=== PATIENT | female | born 1985 | race Two or more races ===

== ENCOUNTER 2022-02-10 05:50 | Day surgery (SDC) | payer OTHER | END 2022-02-10 11:45 | disposition home or self-care (01) | LOC: CIR.AMB 05:50 | PROVIDERS: ATTEND Student in an Organized Health Care Education/Training Program | DX: N87.1 Moderate cervical dysplasia (principal); Z86.16 Personal history of COVID-19; E78.5 Hyperlipidemia, unspecified; F17.210 Nicotine dependence, cigarettes, uncomplicated; Z71.6 Tobacco abuse counseling; F12.90 Cannabis use, unspecified, uncomplicated ==